=== PATIENT | male | born 1975 | race Hispanic/Latino ===

== ENCOUNTER 2017-03-09 14:53 | Emergency (ER) | payer OTHER ==
[~2017-03-09] VITALS: Ht 162.6 cm; Wt 81.8 kg
[2017-03-09 15:00] VITALS: BP 121/73; PULSE 71; RESP 12; O2SAT 96
--- NOTE | 2017-03-09 16:24 | ED.REPORT ---
HPI-General Illness Date of Service March 09, 2017 ED Provider: Shelton Miller MD Patient is a 41 year old male who presents to the ED with right 4th and 5th finger lacerations that occurred this morning. Patient was at work using a circular saw when the incident occurred. He reports numbness to both fingers. Last tetanus unknown. He denies any other medical complaints at this time. Nursing Notes Stated Complaint: LACERATION ON RING/PINKY FINGERS ON RT HAND Chief Complaint: Extremity Trauma Nursing Notes Reviewed: Yes Allergies: Coded Allergies: No Known Allergies (Verified , 11/06/05) General Time Seen by MD: 16:16 Chief Complaint Other (Finger Laceration ) Hx Obtained From: Patient Arrived By: Walk-in Sudden in Onset?: Yes Onset Occurred: Just prior to arrival Symptom Duration: Since onset Caused by: Accidental Location: : Hand right Quality: Painful Radiation: : Does not radiate Severity: Current: Mild Severity: Maximum: Mild Associated with: Reports: Numb extremities, Denies: Fever, Weak extremity Pertinent Negative: Pt denies other symptoms Recent Healthcare: No recent doctor visit, No recent hospitalization Past Medical History Past Medical History None reported. Past Surgical History None reported. Smoking History Unknown if Ever Smoker Social History Other Social History: Good social support, Local resident Ambulatory Status Independent Review of Systems Full Review of Systems Constitutional: Denies: Chills, Fever Cardiovascular: Denies: Chest pain GI: Denies: Nausea, Vomiting Musculoskeletal: Reports: Joint pain (finger lacerations (right)) Complete sys rev & neg: except as marked. Physical Exam Vital Signs Vital Signs Date Time Temp Pulse Resp B/P Pulse Ox O2 Delivery O2 Flow Rate FiO2 03/09/17 15:00 36.6 71 12 121/73 96 Room Air Initial VS: Reviewed Neck: Supple, Non-tender, Full range of motion Extremities: Vascular intact, Neuro intact, No swelling, No tenderness Skin: Warm, Dry, No cyanosis Neurologic: Alert, Oriented, Nonfocal Psychiatric: Mood/affect normal, Behavior normal, Normal thought content General/Constitutional: Awake, Alert, No acute distress Head / Eyes: Atraumatic, Normocephalic, PERRL Respiratory / Chest: Atraumatic, No respiratory distress Cardiovascular: Peripheral circulation NL, Pulses = bilaterally Upper Extremities Upper Extremity / MS: Atraumatic, Inspection NL, Neurologic intact, Vascular intact Wrist / Hand: Atraumatic, Neurologic intact, Vascular intact, No ligamentous injury, Tendon function NL Trauma / Burn / Environmental: Positive: Laceration (superficial laceration to 4th and 5th fingers ) HAND/WRIST: Diminished senstaion above the dorsum of the 4th and 5th finger at the distal aspect No foreign body present Patient is able to fully flex and extend the fingers of the right hand. Interpretation & Diagnostics X-Ray Interpretation Xray Interpretation: IMPRESSION: 1. No acute fracture or dislocation. 2. Sclerosis of the lunate with internal lucencies suspicious for avascular necrosis. Dictated by: Ted Hurtado M.D. on 03/09/2017 at 18:01 X-Ray Ordered: Hand right Interpretation / Wet Read by: Interpret - Radiologist Procedures Splint Application - Fx Mgt Splint Application- Fx Mgt: 4th and 5th finger splint Time: 17:38 Procedure Performed by: Speed Belt Sander Post-Procedure / Complications: Cap refill normal, Post splint vascular nl, Post splint neuro nl, Condition improved, Tolerated procedure well, Patient stable Splint Post-Application Eval Extremity Condition: Cap refill < 2 sec, Distal sensation intact, Distal motor Intact, No compartment syndrome Re-Eval/Medical Decision Med Decision/Clinical Course Patient is a 41 year old male who presents to the ED with right 4th and 5th finger lacerations that occurred this morning. Patient was at work using a circular saw when the incident occurred. He reports numbness to both fingers. Last tetanus unknown. He denies any other medical complaints at this time. TDAP status updated X-ray IMPRESSION: 1. No acute fracture or dislocation. 2. Sclerosis of the lunate with internal lucencies suspicious for avascular necrosis. Lacerations are extremely superficial. No evidence of neurovascular injury. No evidence of ligamentous injury. Lacerations do not extend onto the superficial cutaneous layer. No sutures required. Wound is copiously irrigated and sterile dressings placed.Prior to discharge follow-up and return precautions were reviewed in detail with the patient who verbalized understanding and agreement with the plan. The patient was discharged in stable condition. Time of Eval: 17:36 Patient Status: Condition improved Re-Evaluation/Progress Note: Patient is rechecked. He is informed of his diagnosis and intended treatment plan. All questions are addressed. He understands and agrees with the plan to follow up. Counseled Regarding: Diagnosis, Need for follow-up, When/why to return to ED Discharge & Departure Primary Impression: Finger laceration Encounter type: initial encounter Qualified Code: S61.219A - Laceration without foreign body of unspecified finger without damage to nail, initial encounter Additional Impression: Finger pain Laterality: right Qualified Code: M79.644 - Pain in right finger(s) Disposition: Home Discharge Condition All VS Reviewed: Yes Condition: Improved Patient Instructions: Finger Laceration (ED) Additional Instructions: Thank you for seeking care at the emergency room. Our primary goal today in the ED was to evaluate you for any life-threatening conditions. Your evaluation was reassuring and the lacerations should heal within the next week. Take Tylenol or ibuprofen as needed for pain. You should follow-up with your primary doctor in the next week for a recheck. You should return to the ED immediately if you develop any signs of infection fevers, chills, redness, pus weakness or any other concerning signs or symptoms. Thank you for letting us partake in your care today. Referrals: [facility] (PCP) Scribe Attestation Portions of this note were transcribed by Karen Higgins. I, Dr. Miller personally performed the history, physical exam and medical decision-making; I reviewed and confirmed the accuracy of the information in the transcribed note. Signed by: Ninoska Bautista, 03/09/17 1831. copies to: [facility] Shelton Miller MD March 09, 2017 16:24 KAREN HIGGINS March 09, 2017 17:38
[2017-03-09] MEDS ORDERED: TdaP Vaccine 0.5 mL Inj IM ONE (17:40)
--- NOTE | 2017-03-09 18:04 | DRSVH ---
PROCEDURE: X-RAY RIGHT HAND, MINIMUM THREE VIEWS ([id number]) INDICATIONS: 4/5 finger injury, r/o fx, FB TECHNIQUE: 3 views of the hand(s) acquired. COMPARISON: None. FINDINGS: Bones: No acute fracture or dislocation. There is sclerosis of the lunate with internal cystic luce ncies. Carpal bones are normally aligned. Soft tissues: No suspicious soft tissue calcifications. IMPRESSION: 1. No acute fracture or dislocation. 2. Sclerosis of the lunate with internal lucencies suspicious for avascular necrosis. Dictated by: Ted Hurtado M.D. on 03/09/2017 at 18:01 Approved by: Ted Hurtado M.D. on 03/09/2017 at 18:03
[2017-03-09] MEDS ORDERED: HYDROcodone-APAP 5-325 mg Tablet PO ONE (18:40)
== END 2017-03-09 18:57 | disposition home or self-care (01) ==
LOC: SED 14:53
DX: S61.214A Laceration without foreign body of right ring finger without damage to nail, initial encounter (principal); S61.216A Laceration without foreign body of right little finger without damage to nail, initial encounter; M79.644 Pain in right finger(s); W31.2XXA Contact with powered woodworking and forming machines, initial encounter; Y93.89 Activity, other specified; Y92.69 Other specified industrial and construction area as the place of occurrence of the external cause; Y99.0 Civilian activity done for income or pay; Z23 Encounter for immunization